=== PATIENT | female | born 1985 | race Caucasian/White ===

== ENCOUNTER 2025-02-01 16:54 | Emergency (ER) | payer BC, SELFPAY ==
[2025-02-01 17:02] VITALS: BP 139/96
[2025-02-01 17:21] VITALS: BP 136/87
[2025-02-01 18:00] VITALS: BP 108/78
--- NOTE | 2025-02-01 18:06 | ED.GENMED ---
History of Present Illness
General
Chief Complaint: Breathing Problem
Source: patient
Exam Limitations: none
Time Seen by Provider: 02/01/25 17:22
Nursing documentation reviewed up to this point in time: agreed with
History of Present Illness
History of Present Illness:
39-year-old female with history of lupus, 'obstructive lung disease' diagnosed on recent PFTs who presents to the emergency department for evaluation of shortness of breath. Patient reports symptoms have been subacute to chronic but seem acutely
worse today. 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 She does see both a music composer and a supervising fire marshal; she says she had recent PFTs and was diagnosed with obstructive lung
disease and was started on Spiriva twice daily in addition to as needed albuterol�she says that despite using these medications symptoms were worse today which prompted ER visit. She describes a tightness in the chest like a band. Associated
nonproductive cough. No fever or chills. No swelling the legs noted. In triage she was noted to be hyperventilating and she says that she was having paresthesias in the face and extremities as well as carpopedal spasms.
Past History
Past History
ED Past Medical History: Other (Lupus, inflammatory arthritis, latent TB)
Social History
Tobacco: Non-smoker
Personal:
Living: with family
Review of Systems
Review of Systems
All Other Systems: ROS reviewed and negative except as documented in HPI and ROS
Constitutional: Denies fever or chills
Respiratory: Reports cough and trouble breathing
Cardiac: Reports chest pain; Denies palpitations
ABD/GI: Denies abdominal pain
Musculoskeletal: Denies edema
Neurological: Reports other (Paresthesias)
Phy Exam
Physical Exam
Physical Exam:
General: Awake, alert, oriented x3; anxious and tearful appearing
Head: Normocephalic, atraumatic
Eyes: Conjunctiva normal
Throat: Airway intact, handling secretions
Neck: Trachea midline, no JVD
Lungs: Clear to auscultation bilaterally, no wheezing, rales, rhonchi; frequent coughing
Heart: Tachycardia with regular rhythm, no murmurs, gallops, or rubs
Neuro: No gross deficits
Extremities: No edema in extremities, good distal pulses in the legs, extremities are warm and well-perfused
Scores
Heart Failure Risk
Heart Failure Risk Score: Not Applicable
Heart Score for Chest Pain Patients
STEMI patient?: Not applicable
Withdrawal Assessment of Alcohol
Withdrawal Assessment Completed?: Not applicable
Course
Orders/Labs/Results
Orders:
Orders
02/01/25 16:57
Electrocardiogram (*1) Urgent
Reason for Study: Shortness of Breath
EKG- Treatment ONCE
02/01/25 17:23
Test Result ONCE
CR Chest Portable - 1 View Urgent
Comment:
Reason For Exam: sob
Reason Study Needs to be Portable: Unable to Transport
02/01/25 17:32
Ipratropium/Albuterol Sulfate [Duoneb] 3 ml INH R NOW STA
MethylPREDNISolone PF [Solu-Medrol Pf] 125 mg IV NOW STA
02/01/25 18:00
0.9% Sodium Chloride 500 ml [Nss] 500 ml IV 100 mls/hr
02/01/25 18:14
Complete Blood Count/With Diff Urgent
Comprehensive Metabolic Panel Urgent
D-Dimer Urgent
HCG, Serum Qualitative Screen Urgent
02/01/25 19:47
Electrocardiogram (*1) Urgent
Reason for Study: Tachycardia
EKG- Treatment ONCE
Abnormal Lab Results
02/01/25
18:14
WBC 3.8 L 10^3/uL
(4.8-10.8)
Hct 35.6 L %
(37.0-47.0)
MPV 10.8 H fL
(7.4-10.4)
Absolute Lymphs (auto) 1.1 L 10^3/uL
(1.2-3.4)
Chloride 109 H mmol/L
(98-107)
Glucose 106 H mg/dl
(70-99)
02/01/25 18:14
02/01/25 18:14
Vital Signs
Initial and Last Documented VS:
Initial Vital Signs
Temp Pulse Resp BP Pulse Ox
36.8 C 129 18 139/96 98
02/01/25 17:02 02/01/25 17:02 02/01/25 17:02 02/01/25 17:02 02/01/25 17:02
Last Documented Vital Signs
Temp Pulse Resp BP Pulse Ox
36.8 C 111 25 108/78 100
02/01/25 17:02 02/01/25 18:45 02/01/25 18:45 02/01/25 18:00 02/01/25 18:45
MDM/Problems Addressed
Differential Diagnosis Includes:
Asthma/COPD/bronchitis, lupus flare, pneumothorax, pneumonia, pulmonary embolism, pulmonary edema, anxiety/panic
MDM/Problems Addressed:
39-year-old female presents for evaluation of shortness of breath acute on chronic despite compliance with Spiriva and albuterol. She is tachycardic but otherwise normal vitals here. Pulse ox and respiratory rate normal. She does have frequent
coughing but lungs sound essentially clear�rest of exam as above. Will plan to place an IV check labs including a CBC and a CMP, hCG, D-dimer. Will check chest x-ray. Check an EKG. Will treat with IV steroid and DuoNeb. Monitor closely reassess
after the above.
Labs reviewed: CBC and CMP no clinically significant abnormalities. hCG negative. D-dimer negative. Chest x-ray shows no acute disease. Patient feeling much better after DuoNeb and steroids she says she is now breathing more comfortably. Heart
rate improved, respiratory rate and pulse ox normal. Symptoms could be related to reactive airway disease versus headache versus lupus flare. Will plan to discharge on oral steroid patient has follow-up in a few days with a music composer. Spoke
about return precautions all questions answered.
Chronic conditions affecting care:
Lupus
*Radiology
Radiology exam reviewed: preliminary read by ED provider and radiology read reviewed
*Pulse Oximetry
Patient hypoxic: no
*EKG
Interpreted by ED Provider?: Yes
Heart Rate: 142
Rate: tachycardiac
Rhythm: sinus and sinus tachycardia
Renick: normal axis
Interval: normal interval
QRS Pattern: right bundle branch block (Incomplete)
Ischemia: non-specific ST changes
*Critical Care Note
Total Time (30-74mins, 75-104mins- exclusive of procedures): Not Applicable
Data Reviewed
Review of Other/Old Records Reveals: Labs and Records
Source: patient and records
ED Attending Note
-
Portions of this chart may have been created with voice recognition software.� Occasional wrong word or��sound alike� substitutions may have occurred due to the inherent limitations of voice recognition software.
Discharge Plan
Departure
Patient Disposition: Home (Routine Discharge)
Date of Disposition: 02/01/25
Time of Disposition: 19:50
Patient with high blood pressure during this ER visit?: No
Discharge Problem:
Dyspnea
Instructions: Shortness of Breath (Dyspnea) (DC)
Prescriptions:
New
prednisone 10 mg Tablet
See Rx Instructions .ROUTE .COMPLEX Qty: 30 0RF
Rx Instructions:
Take By Mouth:
40 mg daily x3 days, 30 mg daily x3 days,
20 mg daily x3 days, 10 mg daily x3 days.
No Action
hydroxychloroquine [Plaquenil] 200 mg Tablet
400 mg PO DAILY
colchicine 0.6 mg Tablet
0.6 mg PO DAILY
sertraline 150 mg Capsule
150 mg PO DAILY
montelukast [Singulair] 10 mg tablet
10 mg PO DAILY Qty: 20 0RF
hydroxyzine pamoate 50 mg capsule
50 mg PO Q6H PRN (Reason: itching) Qty: 30 0RF
famotidine [Pepcid] 20 mg tablet
20 mg PO BID Qty: 20 0RF
prednisone 10 mg tablet
20 mg PO TID Qty: 39 0RF
Rx Instructions:
20mg TID 1st 3 days, 20mg BID 2nd 3 days, 10mg BID 3rd 3 days, 10mg OD 4th 3 days
Referrals:
ASA DIAZ, DO [Non-Admitting Privileges] - Keep scheduled appt
Activity Restrictions/Additional Instructions:
Thank you for visiting the Emergency Department at [facility].
1. Please schedule a follow up appointment as directed. Call first thing tomorrow morning to make an appointment.
2. If indicated, please take your medications as instructed and indicated on discharge paperwork.
3. If any of your symptoms do not improve, or persist, or become more severe within 6-12 hours, please return to the emergency department for further care.
4. Please return to the emergency department if you develop a headache, neck pain/stiffness, fever greater than 100.4F, chest pain, shortness of breath, persistent nausea, vomiting, slurred speech, difficulty walking, numbness/tingling, weakness,
signs of infection or any other symptoms that are worrisome to you.
Please call [phone] if you have any questions.
Interventions
Interventions:
*Risk Screen - Suicide Last Done: 02/01/25 17:05
*General Assessment Last Done: 02/01/25 17:05
*Neglect/Abuse Screening Last Done: 02/01/25 17:05
*ED- Fall Risk Assessment Last Done: 02/01/25 18:10
*ED COVID-19 Vaccine History Last Done: 02/01/25 17:05
ED- Cardiac Assessment Last Done: 02/01/25 18:10
ED- Pulmonary Assessment Last Done: 02/01/25 18:10
Discharge Date and Time
Print Language: BAHAMIAN
[2025-02-01] MEDS: NSS 500 IV (18:14)
[2025-02-01] MEDS: DUONEB 3 ML INH (18:16)
[2025-02-01] MEDS: SOLU-MEDROL PF 125 MG IV (18:17)
[2025-02-01 18:34] LABS: % Basophils 0.8 % (0-2); % Eosinophils 1.3 % (0-6); % Immature Granulocytes 0.3 % (0-0.5); % Monocytes 6.5 % (1.7-9.3); % Neutrophils 63.1 % (42.2-75.2); Absolute Eosinophils 0.1 10^3/uL (0-0.7); Absolute Lymphocytes 1.1 10^3/uL (1.2-3.4); Absolute Monocytes 0.3 10^3/uL (0.1-0.6); Absolute Neutrophils 2.4 10^3/uL (1.4-6.5); Hematocrit 35.6 % (37.0-47.0); Hemoglobin 12.2 g/dL (12.0-16.0); Mean Corp Hgb Conc. 34.3 g/dL (33.0-37.0); Mean Corpuscular Hgb 27.9 pg (27.0-31.0); Mean Corpuscular Volume 81.3 fL (81.0-99.0); Mean Platelet Volume 10.8 fL (7.4-10.4); Nucleated Red Blood Cells % 0 %; Platelet Count 169 10^3/uL (130-400); Red Blood Cell Count 4.38 10^6/uL (4.20-5.40); White Blood Cell Count 3.8 10^3/uL (4.8-10.8)
[2025-02-01 18:46] VITALS: BMI 21.1
[2025-02-01 18:47] LABS: D-Dimer < 0.27 ug/mlFEU (0.00-0.50)
[2025-02-01 18:51] LABS: ALT (SGPT) 15 U/L (0-35); AST (SGOT) 21 U/L (14-36); Alkaline Phosphatase 41 U/L (38-126); Blood Urea Nitrogen 14 mg/dl (7-17); Calcium 9.8 mg/dl (8.4-10.2); Carbon Dioxide 23 mmol/L (22-30); Chloride 109 mmol/L (98-107); Estimated Creatinine Clearance 102 ml/min; Glucose 106 mg/dl (70-99); HCG, Serum Qualitative Screen Negative; Potassium 3.9 mmol/L (3.5-5.1); Sodium 143 mmol/L (135-145); Total Bilirubin 0.4 mg/dl (0.2-1.3); Total Protein 7.6 g/dl (6.3-8.2); eGFR > 60.00
[2025-02-01 19:59] VITALS: BP 108/71
== END 2025-02-01 20:14 | disposition home or self-care (01) ==
LOC: EMR 16:54
PROVIDERS: EMERGENCY PHYSICIAN Emergency Medicine
DX: R06.00 Dyspnea, unspecified (principal); J44.9 Chronic obstructive pulmonary disease, unspecified
CPT/HCPCS: 99283; 96374; 94640; 71045; 80053; 84703; 85025; 85379; 93005